=== PATIENT | female | born 1990 | race African-American/Black ===

== ENCOUNTER 2021-09-17 13:01 | Outpatient (CLI) | payer OTHER, SELFPAY ==
--- NOTE | ~2021-09-17 | US_ITS ---
EXAMINATION: US OB <=14 wk fetus w TV DATE: 09/17/2021 13:52 INDICATION: Uncertain dating during first trimester TECHNIQUE: Real-time pelvic ultrasound utilizing both a transvaginal and transabdominal probe was pe rformed. The interpreting radiologist was not present for the study. COMPARISON: None. FINDINGS: The uterus measures 8.5 x 6.7 x 5.6 cm. There is an intrauterine gestational sac with double decidua sign but without internal yolk sac or pole.The mean sac diameter measures 2.7 cm, which correl ates with an estimated gestational age of 7 weeks and 5 days. The right ovary measures 3.6 x 1.8 x 1.6 cm. The left ovary measures 3.8 x 2.6 x 2.3 cm. And 2.5 x 2. 2 x 1.7 cm thick-walled centrally hypoechoic corpus luteum cyst in the left ovary. There is no free f luid in the pelvis. IMPRESSION: 1. Single intrauterine gestational sac with mean sac diameter of 2.7 cm without discernible yolk sac or pole and The absence of a discernible embryo with a mean sac diameter of > or = 2.5 cm is co nsistent with a failed . The mean sac diameter of 2.7 cm would be consistent with an estimat ed gestational age by ultrasound of 7 weeks 5 day(s) +/- 5 day(s) with estimated date of delivery (ED D) of 05/01/2022. Reviewed, dictated and finalized at location B. IMPRESSION: 1. Single intrauterine gestational sac with mean sac diameter of 2.7 cm without discernible yolk sac or pole and The absence of a discernible embryo wit h a mean sac diameter of > or = 2.5 cm is consistent with a failed . T he mean sac diameter of 2.7 cm would be consistent with an estimated gestationa l age by ultrasound of 7 weeks 5 day(s) +/- 5 day(s) with estimated date of del luz (ONEIL) of 05/01/2022.
== END 2021-09-17 13:02 | disposition home or self-care (01) ==
PROVIDERS: PCP Obstetrics & Gynecology; Visit Provider Obstetrics & Gynecology Gynecology
DX: Z34.91 Encounter for supervision of normal pregnancy, unspecified, first trimester (principal); Z3A.01 Less than 8 weeks gestation of pregnancy
CPT/HCPCS: 76801; 76817

== ENCOUNTER 2021-09-18 15:29 | Outpatient (RCR) | payer OTHER, SELFPAY | END 2021-12-17 23:59 | disposition home or self-care (01) | LOC: ANHLAB 15:29 | PROVIDERS: PCP Obstetrics & Gynecology Gynecology; Visit Provider Obstetrics & Gynecology Gynecology | DX: O02.1 Missed abortion (principal); Z3A.00 Weeks of gestation of pregnancy not specified | CPT/HCPCS: 36415; 84702 ==

== ENCOUNTER 2021-09-20 15:42 | Outpatient (CLI) | payer OTHER, SELFPAY | END 2021-09-20 15:43 | disposition home or self-care (01) | LOC: ANHOBOP 15:47 | PROVIDERS: PCP Obstetrics & Gynecology Gynecology; Visit Provider Obstetrics & Gynecology Gynecology | DX: O20.0 Threatened abortion (principal); Z3A.00 Weeks of gestation of pregnancy not specified | CPT/HCPCS: 36415; 84702 ==

== ENCOUNTER 2021-10-01 10:51 | Outpatient (CLI) | payer OTHER, SELFPAY ==
--- NOTE | ~2021-10-01 | US_ITS ---
EXAMINATION: US OB follow up DATE: 10/01/2021 11:44 INDICATION: Inappropriate change and quantitative hCG in first trimester TECHNIQUE: Real-time ultrasound of the pelvis was performed. The interpreting radiologist was not pre sent for the study. COMPARISON: 09/17/2021 FINDINGS: There is an intrauterine gestational sac with a mean sac diameter of 4.1 cm. No pole is identified. The right ovary measures 2.3 x 1.3 x 2.1 cm. The left ovary measures 2.6 x 1.8 x 2.3 c m. An irregular walled corpus luteum of the left ovary is noted with increase in cystic component. Th ere is normal vascular flow in the ovaries. IMPRESSION: 1. Mean sac diameter of 4.1 cm with no embryo. Findings are diagnostic of failure. Reviewed, dictated and finalized at location A. IMPRESSION: 1. Mean sac diameter of 4.1 cm with no embryo. Findings are diagnostic of pregn annalee failure.
== END 2021-10-01 10:52 | disposition home or self-care (01) ==
PROVIDERS: PCP Obstetrics & Gynecology Gynecology; Visit Provider Obstetrics & Gynecology Gynecology
DX: Z34.90 Encounter for supervision of normal pregnancy, unspecified, unspecified trimester (principal); Z3A.00 Weeks of gestation of pregnancy not specified
CPT/HCPCS: 76816

== ENCOUNTER 2021-10-09 00:46 | Day surgery (SDC) | payer OTHER, SELFPAY ==
[2021-10-06 14:43] VITALS: BMI 18.5
--- NOTE | 2021-10-06 14:45 | SUR.PREOP ---
Report to the Outpatient Waiting Room, entrance under the green pavilion located off [facility], at time __1030 on date _10/09/21 . OR Time: __1230 . - You and your visitor will be asked a series of questions to screen for COVID 19 for your protection. - Only one visitor is allowed at this time. - The patient visitor is requested to leave or wait in car when not with patient. - A mask is required within the hospital. Patients may have clear liquids (water, carbonated beverages, clear teas, apple juice) until 3 hours prior to surgery with a maximum of 20 ounces. - No food from midnight until time of surgery - Infants may have breast milk until 4 hours before surgery, formula 6 hours prior to surgery. - Children will be allowed to drink immediately following surgery. If applicable, please bring a bottle or sippy cup to assist with drinking. Juice, water, soda, and popsicles are readily available. For infants on formula, please bring formula the day of surgery. Pacifiers are allowed. Take the following medications with a SIP of water the morning of surgery: __n/a Medications to discontinue per physician n/a Date to take last dose_n/a Please no make-up, nail korean, hairspray, perfume, deodorant, or body powder the day of surgery. No jewelry (including any body piercings) or valuables the day of surgery, leave them at home. Please take a shower or bath the night before, or the morning of, surgery with an antibacterial soap. Wear comfortable, loose fitting clothing. Children are encouraged to wear pajamas. - Jewelry must be removed prior to entering the operating room. Rings and piercings that are not removed may be cut off. - The hospital will not accept responsibility for valuables. - Please leave all valuables, including medications, at home the day of surgery. If you are going home after surgery, a licensed peg driver must drive you home. - NO public transportation without another adult. - We recommend that an adult stay with you for 24 hours following discharge. - We also recommend that you do not drive, make important decision, drink alcoholic beverages, or take any drugs that were not prescribed by your health care provider for at least 24 hours after your discharge time. For Pediatric surgeries, we recommend two adults accompany the child home (only one inside the building at this time). Follow any additional instructions given to you from your surgeon. If you or anyone in your household have experienced Covid symptoms in the past week, please notify your surgeon or the nurse liaison at the phone number below for possible testing. Telephone instructions given to domo hernandez and asked if any additional questions and then verbalized understanding. Patient advised to call surgeon office or pre surgery nurse liaison [phone] if any additional questions.
--- NOTE | 2021-10-06 15:15 | SUR.PREOP ---
Report to the Outpatient Waiting Room, entrance under the green pavilion located off [facility], at time 1030 on date _10/09/21 . OR Time: _1230 . - You and your visitor will be asked a series of questions to screen for COVID 19 for your protection. - Only one visitor is allowed at this time. - The patient visitor is requested to leave or wait in car when not with patient. - A mask is required within the hospital. Patients may have clear liquids (water, carbonated beverages, clear teas, apple juice) until 3 hours prior to surgery with a maximum of 20 ounces. - No food from midnight until time of surgery - Infants may have breast milk until 4 hours before surgery, infant formula 6 hours prior to surgery. - Children will be allowed to drink immediately following surgery. If applicable, please bring a bottle or sippy cup to assist with drinking. Juice, water, soda, and popsicles are readily available. For infants on formula, please bring formula the day of surgery. Pacifiers are allowed. Take the following medications with a SIP of water the morning of surgery: ___n/a Medications to discontinue per physician ___n/a Date to take last dose___n/a Please no make-up, nail south sudanese, hairspray, perfume, deodorant, or body powder the day of surgery. No jewelry (including any body piercings) or valuables the day of surgery, leave them at home. Please take a shower or bath the night before, or the morning of, surgery with an antibacterial soap. Wear comfortable, loose fitting clothing. Children are encouraged to wear pajamas. - Jewelry must be removed prior to entering the operating room. Rings and piercings that are not removed may be cut off. - The hospital will not accept responsibility for valuables. - Please leave all valuables, including medications, at home the day of surgery. If you are going home after surgery, a licensed new car driver must drive you home. - NO public transportation without another adult. - We recommend that an adult stay with you for 24 hours following discharge. - We also recommend that you do not drive, make important decision, drink alcoholic beverages, or take any drugs that were not prescribed by your health care provider for at least 24 hours after your discharge time. For Pediatric surgeries, we recommend two adults accompany the child home (only one inside the building at this time). Follow any additional instructions given to you from your surgeon. If you or anyone in your household have experienced Covid symptoms in the past week, please notify your surgeon or the nurse liaison at the phone number below for possible testing. Telephone instructions given to karime hernandez and asked if any additional questions and then verbalized understanding. Patient advised to call surgeon office or pre surgery nurse liaison [phone] if any additional questions.
--- NOTE | 2021-10-08 08:06 | P.PNAN_ITS ---
Anes - Initial Pre Proc Eval Procedure: Operation Date: 10/09/21 12:30 Proposed Procedures p Suction Dilation and Curettage - Bessie Roman MD Date/Time: 10/08/21 08:06 Surgeon: Bessie Roman MD Pre Op Diagnosis: missed ab Patient Data Age: 31 Gender: F Height: 1.55 m Weight: 44.54 kg Allergies Allergy/AdvReac Type Severity Reaction Status Date / Time No Known Allergies Allergy Unverified 10/09/21 10:27 Home Medications Medication Instructions Recorded Confirmed Type ascorbic acid (vitamin C) 1 tab-cap PO DAILY 10/06/21 10/09/21 History Patient hx anesthesia problems: none Family hx anesthesia problems: none Results Review: All pre-operative results and documents have been reviewed as part of the pre-operative evaluation. [facility] Social History Social History Smoking status: Never smoker Living arrangements: alone Spiritual care concerns: No Anes - Eval Final PreProcedure Day of Procedure 10/08/21 08:06 Patient weight: normal Heart: regular rate and rhythm Lungs: clear to auscultation and normal air movement Airway: Mallampati scale class II Neurological: alert and oriented Last oral intake: >/= 8 hours ASA classification: I Emergent: no Anesthetic plan: proceed Anesthesia type and monitoring: general GIVS Results Review: All pre-operative results and documents have been reviewed as part of the pre-operative evaluation. Informed Consent: The patient's anesthetic plan and its attendant risks and benefits were discussed with the patient/family/POA. Questions were solicited and answers provided to the satisfaction of the patient/family/POA.
[2021-10-09] MEDS: ACETAMINOPHEN 500 MG TABLET 1000 MG PO (10:43)
[2021-10-09] MEDS: LACTATED RINGERS 1,000 ML 30 ML IV CONT (10:50)
[2021-10-09 10:59] VITALS: BP 107/67; PULSE 84; RESP 16; TEMP 36; O2SAT 100
--- NOTE | 2021-10-09 11:31 | WPDHPUPDATE1 ---
History and Physical Update Update Date/Time: 10/09/21 11:31 History and Physical has been reviewed, including an updated exam of the patient. There are NO changes in the patient's condition. Risks, benefits, and alternatives have been discussed and questions answered. Patient agrees to proceed with procedure.
--- NOTE | 2021-10-09 11:31 | PM.HPGS ---
History of Present Illness History of Present Illness Consent: Risks, benefits, and alternatives have been discussed and questions answered. Patient agrees to proceed with procedure. Chief complaint: missed ab Narrative: Baljeet Jones is a 31 year old female with missed . Patient without bleeding. HCG x 2 did not rise appropriately and u/s with empty sac 14 days apart. Options of medication, surgical, and expectant management discussed. Patient wishes to proceed with suction D&C. Risks of infection, bleeding, and perforation reviewed. Agrees to proceed. Review of Systems Review of Systems: not repeated day of surgery; patient states no changes in status PMFSH Past Medical History Medical History (Updated 10/09/21 @ 11:35 by Bessie Roman MD) (normal spontaneous vaginal delivery) x2 Social History Social History Smoking status: Never smoker Living arrangements: alone Spiritual care concerns: No Meds Home Medications and Allergies Home Medications Medication Instructions Recorded Confirmed Type ascorbic acid (vitamin C) 1 tab-cap PO DAILY 10/06/21 10/09/21 History Allergies Allergy/AdvReac Type Severity Reaction Status Date / Time No Known Allergies Allergy Unverified 10/09/21 10:27 Vital Signs Vital Signs - 24 hr 10/09/21 10:59 Temperature 96.8 F L Pulse Rate 84 Respiratory Rate 16 Blood Pressure 107/67 Pulse Oximetry 100 Exam Const: General: healthy appearing and alert Orientation/consciousness: patient oriented x3 Resp: Effort & Inspection: normal respiratory effort Auscultation: clear to auscultation bilaterally Cardio: Rate: regular rate Rhythm: regular rhythm GI: GI Palp: Yes Soft to palpation, No Tenderness to palpation present (GI) and No Palpable mass present : External Female Exam: normal external appearance Speculum Exam - Vagina: normal appearance of the vagina and normal vaginal discharge Speculum Exam - Cervix: normal appearance of the cervix Bimanual exam- vagina & uterus: uterine size normal and consistency normal Bimanual Exam- Adnexa, other: normal adnexae and No adnexal tenderness Neuro: General: patient oriented x3 Assessment and Plan Assessment and plan (1) Missed : Code(s): O02.1 - Missed Status: Acute Assessment and Plan: Plan to proceed with suction D&C
--- NOTE | 2021-10-09 12:12 | P.OP_ITS ---
Procedure Note - Detailed Date of Procedure 10/09/21 Pre-op Diagnosis missed ab Post-op Diagnosis Same Procedure Performed Suction D&C Surgeon Bessie Roman MD Anesthesia MAC and Local Findings Uterus sounds to 12cm. Moderate products of conception. Description of Procedure Patient was taken to the operating room and placed under anesthesia in the dorsal lithotomy position. She was prepped and draped in usual sterile fashion. [place] speculum was placed in the vagina and the cervix injected in each quadrant with 1% lidocaine. The uterus is sounded to 12cm. The cervix is serially dilated to an 8 Hegar. The 8 size curved suction curette is used to vacuum the uterus until no further products were noted in the tubing. Medium sharp curette is used to curette the endometrium was no additional products. One additional pass taken with the suction curette and no further products noted in the tubing. All instruments are removed. Sponge, needle, and instrument counts are correct per the OR staff. Patient is awakened from anesthesia and taken to recovery in stable condition. Estimated Blood Loss 5 Drains No Packing No Pathology Yes (Products of conception) Complications No immediate complications Condition Stable Disposition PACU
[2021-10-09 12:20] VITALS: BP 89/51; PULSE 67; RESP 12; O2SAT 98
[2021-10-09 12:50] VITALS: BP 89/55; PULSE 66; RESP 12; O2SAT 99
[2021-10-09 13:20] VITALS: BP 100/60; PULSE 57; RESP 12
[2021-10-09 13:45] VITALS: BP 99/61; PULSE 59; RESP 12
== END 2021-10-09 14:40 | disposition home or self-care (01) ==
PROVIDERS: PCP Obstetrics & Gynecology Gynecology; Visit Provider Obstetrics & Gynecology Gynecology
PROC: (CPT 59820; principal; 2021-10-09 12:30)
DX: O02.1 Missed abortion (principal); Z3A.00 Weeks of gestation of pregnancy not specified
CPT/HCPCS: 59820; 36415; 85461; 88305; A9270; J2250; J2704; J3010; J7120

== ENCOUNTER 2022-02-23 08:37 | Outpatient (CLI) | payer OTHER, SELFPAY ==
--- NOTE | ~2022-02-23 | US_ITS ---
EXAMINATION: US OB <= 14 weeks fetus DATE: 02/23/2022 09:17 INDICATION: Uncertain dates. TECHNIQUE: Real-time transabdominal pelvic ultrasound was performed. COMPARISON: Ultrasound 10/01/2021 FINDINGS: The uterus measures 9.5 x 6.1 x 7.2 cm. There is an intrauterine gestational sac. A yolk sac is iden tified. The crown rump length measures 2.4 cm, which correlates with an estimated gestational age of 9 weeks and 1 day(s) (+/-) 6 day(s). heart motion is identified measuring 155 beats per minute (bpm) by M-mode Doppler. The right ovary measures 3.4 x 2.6 x 3.0 cm. The left ovary is not vi sualized. There is no free fluid in the pelvis. IMPRESSION: 1. Single living intrauterine gestation with estimated date of delivery of 09/27/2022. Reviewed, dictated and finalized at location B. IMPRESSION: 1. Single living intrauterine gestation with estimated date of delivery of 09/27.
== END 2022-02-23 08:38 | disposition home or self-care (01) ==
PROVIDERS: PCP Obstetrics & Gynecology Gynecology; Visit Provider Obstetrics & Gynecology Gynecology
DX: Z34.91 Encounter for supervision of normal pregnancy, unspecified, first trimester (principal); Z3A.09 9 weeks gestation of pregnancy
CPT/HCPCS: 76801